=== PATIENT | female | born 1970 | race Caucasian/White ===

== ENCOUNTER 2018-09-14 17:00 | Emergency (ER) | payer MEDICAID ==
[2018-09-14 19:52] LABS: URINE PH (Dip) POC 7.5 (5.0-8.5)
[2018-09-14 19:52] LABS: URINE BLOOD (Dip) POC Negative (NEGATIVE); URINE GLUCOSE (Dip) POC Negative (NEGATIVE); URINE KETONES (Dip) POC Trace (NEGATIVE); URINE LEUKOCYTE EST (Dip) POC Trace (NEGATIVE); URINE NITRITE (Dip) POC Negative (NEGATIVE); URINE TOTAL PROTEIN POC Trace (NEGATIVE)
[2018-09-14] MEDS: KETOROLAC 30 MG INJ IM (20:11)
== END 2018-09-14 21:23 | disposition home or self-care (01) ==
LOC: FTE 17:00
DX: M25.519 Pain in unspecified shoulder (principal); I10 Essential (primary) hypertension
CPT/HCPCS: 72040; 81003; 81025; 96372; 99284-25

== ENCOUNTER 2019-02-10 14:20 | Emergency (ER) | payer MEDICAID ==
[2019-02-10] MEDS: CEFTRIAXONE 1 GM/50 ML (PMX) 50 ML IVPB (14:44)
[2019-02-10] MEDS: ACETAMINOPHEN 325 MG TAB PO (14:44)
[2019-02-10 14:45] LABS: ADD MAN DIFF? NO
[2019-02-10] MEDS: SODIUM CHLORIDE 0.9% 1L BAG IV* (14:45)
[2019-02-10 14:50] LABS: WHITE BLOOD COUNT 11.7 10^3/ul (4.8-10.8)
[2019-02-10 14:50] LABS: ABNORMAL IP MESSAGE 1; BASOPHILS % 0.3 % (0.0-2.0); EOSINOPHILS % 0.2 % (0.0-7.0); HEMATOCRIT 31.8 % (37.0-47.0); HEMOGLOBIN 9.4 g/dl (12.0-16.0); LYMPHOCYTES # 0.4 10^3/ul (0.8-2.9); LYMPHOCYTES % 3.2 % (15.0-51.0); MEAN CORPUSCULAR HEMOGLOBIN 21.4 pg (29.0-33.0); MEAN CORPUSCULAR HGB CONC 29.6 g/dl (32.0-37.0); MEAN CORPUSCULAR VOLUME 72.4 fl (82.0-101.0); MEAN PLATELET VOLUME 11.1 fl (7.4-10.4); MONOCYTE # 0.5 10^3/ul (0.3-0.9); MONOCYTES % 4.3 % (0.0-11.0); NEUTROPHIL # 10.8 10^3/ul (1.6-7.5); NEUTROPHILS % 91.7 % (39.0-77.0); PLATELET COUNT 260 10^3/UL (140-415); RED BLOOD COUNT 4.39 10^6/ul (4.20-5.40); RED CELL DISTRIBUTION WIDTH 18.1 % (11.5-14.5)
[2019-02-10 14:52] LABS: POSITIVE DIFF @See below
[2019-02-10 14:58] LABS: ADD UMIC YES; UR ASCORBIC ACID 40 mg/dL (NEGATIVE); UR BACTERIA FEW /HPF (NONE SEEN); UR BILIRUBIN (Dip) NEGATIVE (NEGATIVE); UR BLOOD (Dip) 1+ mg/dL (NEGATIVE); UR CLARITY CLEAR (CLEAR); UR COLOR AMBER (YELLOW); UR GLUCOSE (Dip) NEGATIVE (NEGATIVE); UR KETONES (Dip) NEGATIVE (NEGATIVE); UR LEUKOCYTE ESTERASE (Dip) NEGATIVE Leu/ul (NEGATIVE); UR MUCUS MODERATE /HPF (NONE SEEN); UR NITRITE (Dip) POSITIVE (NEGATIVE); UR RBC 7 /HPF (0-5); UR SQUAMOUS EPITHELIAL CELL FEW /HPF (FEW); UR TOTAL PROTEIN (Dip) 2+ mg/dl (NEGATIVE); UR UROBILINOGEN (Dip) 2+ mg/dL (NEGATIVE); UR WBC 73 /HPF (0-5)
[2019-02-10 15:05] LABS: LACTIC ACID 1.9 mmol/L (0.5-2.0)
[2019-02-10 15:05] LABS: INR 0.98; PARTIAL THROMBOPLASTIN TIME 28.7 Sec (23.0-35.0); PROTIME 13.1 Sec (11.9-14.9)
[2019-02-10 15:07] LABS: ALANINE AMINOTRANSFERASE 27 IU/L (13-69); ALBUMIN/GLOBULIN RATIO 1.14; ALKALINE PHOSPHATASE 105 IU/L (42-121); ANION GAP 11 (5-13); ASPARTATE AMINO TRANSFERASE 23 IU/L (15-46); BILIRUBIN,INDIRECT 0.6 mg/dl (0-1.1); BILIRUBIN,TOTAL 0.6 mg/dl (0.2-1.3); BLOOD UREA NITROGEN 13 mg/dl (7-20); CARBON DIOXIDE 21 mmol/L (21-31); CHLORIDE 107 mmol/L (97-110); CREATININE 0.67 mg/dl (0.44-1.00); Estimated GFR > 60 mL/min (>60); GLUCOSE 215 mg/dl (70-220); POTASSIUM 3.6 mmol/L (3.5-5.1); SODIUM 139 mmol/L (135-144); TOTAL PROTEIN 7.5 g/dl (6.1-8.1)
[2019-02-10 15:18] LABS: TROPONIN-I < 0.012 ng/ml (0.000-0.120)
[2019-02-10 15:26] LABS: LIPASE 58 U/L (23-300)
[2019-02-10] MEDS: KETOROLAC 30 MG INJ IV (16:12)
== END 2019-02-10 16:27 | disposition home or self-care (01) ==
LOC: E/R 14:20
DX: N30.90 Cystitis, unspecified without hematuria (principal); I10 Essential (primary) hypertension
CPT/HCPCS: 36415; 71045; 80053; 81001; 83605; 83690; 84484; 84703; 85025; 85610; 85730; 87040; 87086; 87400; 93005; 96374; 96375; 99285-25